=== PATIENT | female | born 2000 | race Asian ===

== ENCOUNTER 2018-07-28 20:36 | Emergency (ER) | payer OTHER ==
[~2018-07-28] VITALS: Ht 162.6 cm; Wt 54.5 kg
[2018-07-28] MEDS ORDERED: MUPIROCIN CALCIUM 2% 22 GM OINTMENT TP ONE (23:00)
[2018-07-28 23:45] VITALS: BP 114/80
== END 2018-07-28 23:48 | disposition home or self-care (01) ==
LOC: EMS 20:39
DX: L08.9 Local infection of the skin and subcutaneous tissue, unspecified (principal)
CPT/HCPCS: 87070; 87205